=== PATIENT | male | born 1965 | race African-American/Black ===

== ENCOUNTER 2016-07-04 23:27 | Emergency (ER) | payer OTHER ==
[2016-07-04] MEDS ORDERED: IBUPROFEN 600 MG TABLET (FP) PO ONE ×2 (23:54→23:57)
[2016-07-04 23:57] VITALS: BP 143/71; PULSE 122; TEMP 102.4; BMI 24.0
--- NOTE | 2016-07-05 01:03 | PDOC ---
History of Present Illness - General Chief Complaint: Respiratory Stated Complaint: COLD SYMPTOMS Time Seen by Provider: 07/05/16 00:24 History Source: Patient - History of Present Illness Timing/Duration: reports: other (x3d) Severity: reports: mild Possible Cause: Yes: no prior episodes Modifying Factors: improves with: activity Associated Symptoms: reports: cough, fever/chills. denies: nasal congestion, nasal drainage, shortness of breath, sore throat Past History - Travel Traveled outside of the country in the last 30 days: No Close contact w/someone who was outside of country & ill: No - Past Medical History Allergies/Adverse Reactions: Allergies Allergy/AdvReac Type Severity Reaction Status Date / Time No Known Allergies Allergy Verified 07/04/16 23:49 Home Medications: Ambulatory Orders Desloratadine/Pseudoephedrine [Clarinex-D 12 Hour Tablet] 1 each PO DAILY PRN Anemia: No - Psycho/Social/Smoking Cessation Hx Anxiety: No Suicidal Ideation: No Smoking Status: No Smoking History: Former smoker Have you smoked in the past 12 months: No Number of Cigarettes Smoked Daily: 0 Information on smoking cessation initiated: No Hx Alcohol Use: No Respiratory Specific PMHX - Complaint Specific PMHX Angina: No Bronchitis: No Pneumonia: No Review of Systems - Review of Systems Able to Perform ROS?: Yes Comments:: 07/05/16 01:13 CONSTITUTIONAL: +fever, chills, generalized weakness, malaise Absent: diaphoresis, loss of appetite HEENT: Absent: rhinorrhea, nasal congestion, throat pain, throat swelling, difficulty swallowing, mouth swelling, ear pain, eye pain, visual Changes CARDIOVASCULAR: Absent: chest pain, loss of consciousness, palpitations, irregular heart rate, peripheral edema RESPIRATORY: + cough Absent:shortness of breath, dyspnea with exertion, orthopnea, wheezing, stridor , hemoptysis GASTROINTESTINAL: Absent: abdominal pain, abdominal distension, nausea, vomiting, diarrhea, constipation, melena, hematochezia GENITOURINARY: Absent: dysuria, frequency, urgency, hesitancy, hematuria, flank pain, genital pain MUSCULOSKELETAL: Absent: myalgia, arthralgia, joint swelling SKIN: Absent: rash, itching, pallor HEMATOLOGIC/IMMUNOLOGIC: Absent: easy bleeding, easy bruising, lymphadenopathy, frequent infections ENDOCRINE: Absent: unexplained weight gain, unexplained weight loss, heat intolerance, cold intolerance NEUROLOGIC: Absent: headache, focal weakness or paresthesias, dizziness, unsteady gait, seizure, mental status changes, bladder or bowel incontinence PSYCHIATRIC: Absent: anxiety, depression, suicidal or homicidal ideation, hallucinations. Is the patient limited Wolof proficient: No *Physical Exam - Vital Signs Last Vital Signs Temp Pulse Resp BP Pulse Ox 102.4 F H 122 H 22 143/71 99 07/04/16 23:56 07/04/16 23:56 07/04/16 23:56 07/04/16 23:56 07/04/16 23:56 - Physical Exam Comments: 07/05/16 01:14 GENERAL: Well developed, well nourished. Awake and alert. No acute distress. HEENT: Normocephalic, atraumatic. PERRLA, EOMI. No conjunctival pallor. Sclera are non- icteric. Moist mucous membranes. Oropharynx is clear. NECK: Supple. Full ROM. No JVD. Carotid pulses 2+ and symmetric, without bruits. No thyromegaly. No lymphadenopathy. CARDIOVASCULAR: Regular rate and rhythm. No murmurs, rubs, or gallops. Distal pulses are 2+ and symmetric. PULMONARY: No evidence of respiratory distress. Lungs clear to auscultation bilaterally. No wheezing, rales or rhonchi. ABDOMINAL: Soft. Non-tender. Non-distended. No rebound or guarding. No organomegaly. Normoactive bowel sounds. MUSCULOSKELETAL Normal range of motion at all joints. No bony deformities or tenderness. No CVA tenderness. EXTREMITIES: No cyanosis. No clubbing. No edema. No calf tenderness. SKIN: Warm and dry. Normal capillary refill. No rashes. No jaundice. NEUROLOGICAL: Alert, awake, appropriate. Cranial nerves 2-12 intact. No deficits to light touch and temperature in face, upper extremities and lower extremities. No motor deficits in the in face, upper extremities and lower extremities. Normoreflexic in the upper and lower extremities. Normal speech. Toes are down- going bilaterally. Gait is normal without ataxia. PSYCHIATRIC: Cooperative. Good eye contact. Appropriate mood and affect. ED Treatment Course - Medications Given in the ED: ED Medications Discontinued Medications Generic Name Dose Route Start Last Admin Trade Name Freq PRN Reason Stop Dose Admin Ibuprofen 600 mg 07/04/16 23:57 07/04/16 23:57 Motrin - PO 07/04/16 23:58 600 mg NOW ONE Administration Progress Note - Progress Note Progress Note: 50-year-old male presents to the emergency department complaining of fever/ chills and a nonproductive cough 3 days with body aches. Patient denies any headache, dizziness, lightheadedness, sore throat, difficulty swallowing, chest pain, shortness of breath, abdominal pains, urinary symptoms. Patient adamantly refuses a chest x-ray or flu swab. I explained to the patient that we should try to find out where the source of the fever is probably from the patient refuses. Patient says he wants a prescription for antibiotics for his "virus or flu". I explained to the patient that since he's been experiencing these symptoms for the past 3 days, Tamiflu will not work for him. I informed the patient that a chest x-ray will determine whether he has pneumonia or not. Patient still adamantly refuses. He says he wishes to be discharged and he will take Motrin/Tylenol for his fever. He will return if the symptoms persist for more than 5 days. *DC/Admit/Observation/Transfer Diagnosis at time of Disposition: Fever Qualifiers: Fever type: unspecified Qualified Code(s): R50.9 - Fever, unspecified - Discharge Dispostion Disposition: AGAINST MEDICAL ADVICE Condition at time of disposition: Guarded - Referrals Referrals: Lilian Rivera [Primary Care Provider] - - Patient Instructions Printed Discharge Instructions: DI for Fever (Symptom) -- Adult Additional Instructions: You a going AGAINST MEDICAL ADVICE for the chest x-ray and flu swab. Please return back to the ER for any concerns or persistent symptoms Increase fluids Tylenol/Motrin as needed for fever Increase fluids Follow up with your physician Return to the ER for severe/persistent/worsening symptoms
== END 2016-07-05 01:26 | disposition left against medical advice (07) ==
LOC: JER 23:27
DX: R50.9 Fever, unspecified (principal)
CPT/HCPCS: 99281-25

== ENCOUNTER 2016-09-06 05:28 | Emergency (ER) | payer OTHER ==
[2016-09-06 05:45] VITALS: BP 115/66; PULSE 69; TEMP 97.9; BMI 23.7
--- NOTE | 2016-09-06 06:02 | PDOC ---
History of Present Illness - General Chief Complaint: Respiratory Stated Complaint: DIFFICULTY BREATHING History Source: Patient, Family Exam Limitations: No Limitations - History of Present Illness Initial Comments: 09/06/16 06:08 50yo Male patient presents to ED c/o dry cough, tearing eyes, sore throat, nasal congestion, and sinus pressure. Patient states symptoms began yesterday and worsened overnight. Patient tried using various OTC cold medications with no relief. Denies fever, CP, Body aches, Diff breathing, abd pain or any other complaints at this time. Timing/Duration: reports: yesterday Severity: reports: moderate Possible Cause: Yes: occasional episodes Modifying Factors: worse with: activity, albuterol inhaler, albuterol nebulizer , antibiotics, coughing, lying down, oxygen, rest, other Associated Symptoms: reports: cough, earache, nasal congestion, nasal drainage, sinus infection, sore throat. denies: chest pain/soreness, facial pain, fever/ chills, headache, lightheadedness, muscle aches, wheezing Aspirin Received prior to arrival: No: no aspirin today, unknown, 81 mg x 1, 81 mg x 2, 81 mg x 3, 81 mg x 4, 325 mg x 1, provided at home, provided by EMS, provided by ED Past History - Travel Traveled outside of the country in the last 30 days: No Close contact w/someone who was outside of country & ill: No - Past Medical History Allergies/Adverse Reactions: Allergies Allergy/AdvReac Type Severity Reaction Status Date / Time No Known Allergies Allergy Verified 07/04/16 23:49 Home Medications: Ambulatory Orders Amoxicillin/Potassium Clav [Augmentin 500-125 Tablet] 1 each PO BID #28 tablet 09/06/16 Budesonide [Rhinocort Allergy] 2 spray NS DAILY #1 spray.pump 09/06/16 Loratadine [Claritin] 10 mg PO DAILY #30 tablet 09/06/16 Montelukast Na [Singulair -] 10 mg PO HS #30 tablet 09/06/16 NK [No Known Home Medication] 09/06/16 Anemia: No - Psycho/Social/Smoking Cessation Hx Anxiety: No Suicidal Ideation: No Smoking Status: No Smoking History: Never smoked Have you smoked in the past 12 months: No Number of Cigarettes Smoked Daily: 0 Hx Alcohol Use: No Drug/Substance Use Hx: No Respiratory Specific PMHX - Complaint Specific PMHX Angina: No Bronchitis: No Pneumonia: No Pulmonary Embolus: No TB (Tuberculosis): No Review of Systems - Review of Systems Able to Perform ROS?: Yes Is the patient limited [place] proficient: No Constitutional: No: Chills, Fever, Malaise, Night Sweats HEENTM: Yes: Nose Pain, Nose Congestion, Throat Pain. No: Difficulty Swallowing , Mouth Swelling Respiratory: Yes: Cough. No: Shortness of Breath, Stridor, Wheezing Cardiac (ROS): No: Chest Pain, Palpitations, Syncope ABD/GI: No: Diarrhea, Nausea, Poor Appetite, Poor Fluid Intake, Vomiting : No: Dysuria, Hematuria Musculoskeletal: No: Back Pain, Muscle Weakness Integumentary: No: Erythema, Rash Neurological: No: Headache, Numbness, Paresthesia, Seizure, Tremors, Weakness, Ataxia, Dizziness All Other Systems: Reviewed and Negative *Physical Exam - Vital Signs Last Vital Signs Temp Pulse Resp BP Pulse Ox 97.9 F 69 20 115/66 100 09/06/16 05:42 09/06/16 05:42 09/06/16 05:42 09/06/16 05:42 09/06/16 05:42 - Physical Exam General Appearance: Yes: Nourished, Appropriately Dressed, Mild Distress. No: Apparent Distress, Moderate Distress, Severe Distress HEENT: positive: EOMI, NAUN, Normal Voice, Symmetrical, TMs Normal, Pharyngeal Erythema, Nasal Congestion, Rhinorrhea, Sinus Tenderness. negative: Tonsillar Exudate, Tonsillar Erythema, TM Bulging, TM Dull, TM Erythema Neck: positive: Trachea midline, Normal Thyroid, Supple. negative: Stridor, Lymphadenopathy (R), Lymphadenopathy (L) Respiratory/Chest: positive: Lungs Clear, Normal Breath Sounds. negative: Respiratory Distress, Accessory Muscle Use, Labored Respiration, Rapid RR, Stridor, Wheezing Cardiovascular: positive: Regular Rhythm, Regular Rate Gastrointestinal/Abdominal: positive: Normal Bowel Sounds, Soft. negative: Distended, Guarding, Rebound, Tenderness Musculoskeletal: positive: Normal Inspection. negative: CVA Tenderness Extremity: positive: Normal Capillary Refill, Normal Inspection, Normal Range of Motion. negative: Swelling, Calf Tenderness Integumentary: positive: Normal Color, Dry, Warm. 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, Fully Oriented, Alert, Normal Mood/ Affect, Normal Response, Motor Strength 5/5 *DC/Admit/Observation/Transfer Diagnosis at time of Disposition: Sinusitis Qualifiers: Sinusitis location: sphenoidal Chronicity: subacute Qualified Code(s): J01.30 - Acute sphenoidal sinusitis, unspecified Allergic rhinitis Qualifiers: Allergic rhinitis trigger: other Allergic rhinitis seasonality: seasonal Qualified Code(s): J30.89 - Other allergic rhinitis - Discharge Dispostion Disposition: HOME Condition at time of disposition: Stable Admit: No - Prescriptions Prescriptions: Amoxicillin/Potassium Clav [Augmentin 500-125 Tablet] 1 each PO BID #28 tablet Loratadine [Claritin] 10 mg PO DAILY #30 tablet Budesonide [Rhinocort Allergy] 2 spray NS DAILY #1 spray.pump Montelukast Na [Singulair -] 10 mg PO HS #30 tablet - Referrals Referrals: Lilian Rivera [Primary Care Provider] - - Patient Instructions Printed Discharge Instructions: DI for Allergic Rhinitis, DI for Sinusitis Additional Instructions: FOLLOW UP WITH YOUR PRIMARY CARE PROVIDER NEEDED. TAKE MEDICATIONS PRESCRIBED. DRINK PLENTY WATER. RETURN IF SYMPTOMS WORSEN OR ANY CONCERNS FOR FURTHER EVALUATION. Print Language: KINYARWANDA - Post Discharge Activity Work/School Note: Back to Work
[2016-09-06] MEDS ORDERED: LORATADINE 10 MG TABLET ONE (06:12)
[2016-09-06] MEDS ORDERED: AMOX TR/POT CLAV 500MG/125MG TABLETS (FP) PO ONE (06:14)
[2016-09-06] MEDS ORDERED: LORATADINE 10 MG TABLET PO SCH (10:00)
== END 2016-09-06 06:12 | disposition home or self-care (01) ==
LOC: JER 05:28
DX: J01.30 Acute sphenoidal sinusitis, unspecified (principal); J30.89 Other allergic rhinitis
CPT/HCPCS: 99282-25

== ENCOUNTER 2017-05-07 09:13 | Emergency (ER) | payer OTHER ==
[2017-05-07 09:23] VITALS: BP 135/89; PULSE 65; TEMP 98.4; BMI 24.4
[2017-05-07] MEDS ORDERED: KETOROLAC TROMETHAMINE 60 MG/2 ML VIAL IM ONE (09:49)
[2017-05-07 10:43] LABS: PH,URINE 6.5 (5.0-8.0); URINE APPEARANCE CLEAR; URINE BILIRUBIN NEGATIVE (NEGATIVE); URINE BLOOD NEGATIVE (NEGATIVE); URINE COLOR YELLOW; URINE GLUCOSE (UA) NEGATIVE (NEGATIVE); URINE KETONE TRACE (NEGATIVE); URINE NITRITE NEGATIVE (NEGATIVE); URINE PROTEIN NEGATIVE (NEGATIVE); URINE UROBILINOGEN 0.2 mg/dL (0.2-1.0)
--- NOTE | 2017-05-07 10:43 | PDOC ---
History of Present Illness - General Chief Complaint: Back Pain Stated Complaint: BACK PAIN Time Seen by Provider: 05/07/17 09:36 History Source: Patient Exam Limitations: No Limitations - History of Present Illness Initial Comments: 05/07/17 10:42 51 yr male no pmhx states he was at work and felt a sharp stabbing pain to his left lower back , denies direct trauma denies abd pain or dysuria. Pain is worse with movement no leg pain or groin pain. Occurred: reports: just prior to arrival Severity: reports: moderate Pain Location: reports: back Method of Injury: Yes: unknown Past History - Past Medical History Allergies/Adverse Reactions: Allergies Allergy/AdvReac Type Severity Reaction Status Date / Time No Known Allergies Allergy Verified 07/04/16 23:49 Home Medications: Ambulatory Orders Budesonide [Rhinocort Allergy] 2 spray NS DAILY #1 spray.pump 09/06/16 Diazepam [Valium] 5 mg PO Q8H PRN #12 tablet MDD 15mg 05/07/17 Naproxen [Naprosyn -] 500 mg PO BID PRN #28 tablet 05/07/17 Anemia: No COPD: No Other medical history: denies - Suicide/Smoking/Psychosocial Hx Smoking Status: No Smoking History: Never smoked Have you smoked in the past 12 months: No Number of Cigarettes Smoked Daily: 0 Information on smoking cessation initiated: No Hx Alcohol Use: No Drug/Substance Use Hx: No Substance Use Type: None *Physical Exam - Vital Signs Last Vital Signs Temp Pulse Resp BP Pulse Ox 98.4 F 65 20 135/89 98 05/07/17 09:20 05/07/17 09:20 05/07/17 09:20 05/07/17 09:20 05/07/17 09:20 - Physical Exam General Appearance: Yes: Nourished, Appropriately Dressed HEENT: positive: EOMI, NAUN, Normal ENT Inspection, TMs Normal, Pharynx Normal Neck: positive: Supple. negative: Tender Respiratory/Chest: positive: Lungs Clear, Normal Breath Sounds Cardiovascular: positive: Regular Rhythm, Regular Rate Gastrointestinal/Abdominal: positive: Normal Bowel Sounds, Soft. negative: Tender Rectal Exam: positive: deferred Lymphatic: negative: Adenopathy Musculoskeletal: positive: Normal Inspection, Other (neg spinal tenderness, lower lumbar spine paraspinal soft tissue ttp ). negative: CVA Tenderness (R), CVA Tenderness (L), Decreased Range of Motion (FROM, pain is reproduced iwth bending forward), Vertebral Tenderness Extremity: positive: Normal Capillary Refill, Normal Inspection, Normal Range of Motion Integumentary: positive: Normal Color, Dry, Warm Neurologic: positive: Fully Oriented, Alert, Normal Mood/Affect, Normal Response , Motor Strength 10/11 ED Treatment Course - Medications Given in the ED: ED Medications Discontinued Medications Generic Name Dose Route Start Last Admin Trade Name Roberto Carlos PRN Reason Stop Dose Admin Ketorolac Tromethamine 60 mg 05/07/17 09:49 05/07/17 09:56 Toradol Injection - IM 05/07/17 09:50 60 mg ONCE ONE Administration Progress Note - Progress Note Progress Note: pt improved after the toradol states pain is much less. pt ambulating freely no distress. Medical Decision Making - Medical Decision Making 05/07/17 10:55 cc: acute left lower back pain non radiating, no abd pain , pain reproduced to touch and with movement, pt denies direct trauma, unable to recall if he was lifting or pushing something at work when it happened will check UA give toradol R/o renal colic r/o muscle spasm and strain 05/07/17 10:59 pt feels better after the toradol urine is negative will dc home with muscle relaxants and naprosyn follow with the orthopedist as needed *DC/Admit/Observation/Transfer Diagnosis at time of Disposition: Low back strain Qualifiers: Encounter type: initial encounter Qualified Code(s): S39.012A - Strain of muscle, fascia and tendon of lower back, initial encounter - Discharge Dispostion Disposition: HOME Condition at time of disposition: Improved - Prescriptions Prescriptions: Diazepam [Valium] 5 mg PO Q8H PRN #12 tablet MDD 15mg PRN Reason: Muscle Spasms Naproxen [Naprosyn -] 500 mg PO BID PRN #28 tablet PRN Reason: Back Pain - Referrals Referrals: Lilian Rivera [Non Staff, Medical] - Juan Jose Navarro MD [Staff Physician] - - Patient Instructions Additional Instructions: apply a heating pad or warm compress to the area of pain as often as you like take naprosyn for pain take the valium as needed for muscle spasm DO NOT DRIVE, OPERATE MACHINERY OR DRINK ALCOHOL WHILE TAKING VALIUM avoid heavy lifting or bending until you have recovered from your pain - Post Discharge Activity
[2017-05-07 19:04] LABS: URINE LEUK ESTERASE Negative (NEGATIVE)
== END 2017-05-07 11:33 | disposition home or self-care (01) ==
LOC: JERFT 09:13
PROC: 3E0233Z Introduction of Anti-inflammatory into Muscle, Percutaneous Approach (ICD-10-PCS; principal; 2017-05-07)
DX: S39.012A Strain of muscle, fascia and tendon of lower back, initial encounter (principal); X58.XXXA Exposure to other specified factors, initial encounter; Y93.89 Activity, other specified; Y92.69 Other specified industrial and construction area as the place of occurrence of the external cause; Y99.8 Other external cause status
CPT/HCPCS: 81003; 99281-25

== ENCOUNTER 2018-04-06 04:47 | Emergency (ER) | payer OTHER ==
[2018-04-06 05:11] VITALS: BP 122/74; PULSE 68; TEMP 97.3; BMI 24.0
--- NOTE | 2018-04-06 05:23 | PDOC ---
History of Present Illness - General Chief Complaint: Injury Stated Complaint: EPISTAXIS Time Seen by Provider: 04/06/18 05:11 History Source: Patient Exam Limitations: No Limitations - History of Present Illness Timing/Duration: 1-3 hours Severity: moderate Past History - Travel Traveled outside of the country in the last 30 days: No Close contact w/someone who was outside of country & ill: No - Past Medical History Allergies/Adverse Reactions: Allergies Allergy/AdvReac Type Severity Reaction Status Date / Time No Known Allergies Allergy Verified 04/06/18 05:13 Anemia: No COPD: No - Immunization History Immunization Up to Date: Yes - Suicide/Smoking/Psychosocial Hx Smoking Status: No Smoking History: Never smoked Have you smoked in the past 12 months: No Number of Cigarettes Smoked Daily: 0 Hx Alcohol Use: No Drug/Substance Use Hx: No Substance Use Type: None Review of Systems - Review of Systems Constitutional: No: Symptoms Reported, See HPI, Chills, Diaphoresis, Fever, Loss of Appetite, Malaise, Night Sweats, Weakness, Weight Stable, Unintentional Wgt. Loss, Unexplained wgt Loss, Other HEENTM: Yes: Eye Pain, Tearing, Nose Congestion, Nose Bleeding, Mouth Pain Respiratory: No: Symptoms reported, See HPI, Cough, Orthopnea, Shortness of Breath, SOB with Exertion, SOB at Rest, Stridor, Wheezing, Productive cough, Hemoptysis, Other Cardiac (ROS): No: Symptoms Reported, See HPI, Chest Pain, Edema, Irregular Heart Rate, Lightheadedness, Palpitations, Syncope, Chest Tightness, Other ABD/GI: No: Symptoms Reported, See HPI, Abdominal Distended, Abd. Pain w/ defecation, Blood Streaked Bowels, Constipated, Diarrhea, Difficulty Swallowing , Nausea, Poor Appetite, Poor Fluid Intake, Rectal Bleeding, Vomiting, Indigestion, Abdominal cramping, Tarry Stools, Other : No: Symptoms Reported, See HPI, Burning, Dysuria, Discharge, Frequency, Flank Pain, Hematuria, Incontinence, Pain, Urgency, Testicular Mass, Testicular Swelling, Lesions, Testicular Pain, Other Musculoskeletal: No: Symptoms Reported, See HPI, Back Pain, Gout, Joint Pain, Joint Swelling, Muscle Pain, Muscle Weakness, Neck Pain, Joint Stiffness, Other Integumentary: No: Symptoms Reported, See HPI, Bruising, Change in Color, Change in Hair/Nails, Dryness, Erythema, Flushing, Lesions, Lumps, Pallor, Pruritus, Rash, Sweating, Other Neurological: No: Symptoms reported, See HPI, Headache, Numbness, Paresthesia, Pre-Existing Deficit, Seizure, Tingling, Tremors, Weakness, Unsteady Gait, Ataxia, Dizziness, Other *Physical Exam - Vital Signs Last Vital Signs Temp Pulse Resp BP Pulse Ox 97.3 F L 68 16 122/74 98 04/06/18 05:04 04/06/18 05:04 04/06/18 05:04 04/06/18 05:19 04/06/18 05:04 - Physical Exam General Appearance: Yes: Nourished, Appropriately Dressed, Mild Distress HEENT: positive: EOMI, NAUN, Normal ENT Inspection, Normal Voice, Symmetrical, TMs Normal, Pharynx Normal, Nasal Congestion, Sinus Tenderness, Other (nasal bridge pain and laceration inthe left nare. Hemodynamically stable) Neck: positive: Normal Thyroid, Supple. negative: Tender, Trachea midline, Rigid, Carotid bruit, Decreased range of motion, Stridor, Lymphadenopathy (R), Lymphadenopathy (L), Rigidity, Tender lateral, Tender midline, Thyromegaly, Other Respiratory/Chest: positive: Lungs Clear, Normal Breath Sounds. negative: Chest Tender, Respiratory Distress, Accessory Muscle Use, Labored Respiration, Rapid RR, Decreased Breath Sounds, Paradoxal Breathing, Crackles, Rales, Rhonchi , Stridor, Wheezing, Hyperresonant, Dullness, Plerual Rub, Other Cardiovascular: positive: Regular Rhythm, Regular Rate. 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 Pt may return for that if he gets worse. Pt understands that we are avoiding scans due to the risk of radiation. *DC/Admit/Observation/Transfer Diagnosis at time of Disposition: Nasal bleeding, Injury of nasal cavity, Work place accident - Discharge Dispostion Disposition: HOME Condition at time of disposition: Stable Decision to Admit order: No - Referrals Referrals: Ryan Gould MD [Primary Care Provider] - Mahesh Hogan MD [Staff Physician] - - Patient Instructions Printed Discharge Instructions: DI for Nosebleed Additional Instructions: return for CT brain and CT face for worsening headache or pain. - Post Discharge Activity Forms/Work/School Notes: Back to Work Activity Comments: 04/06/18 05:37 rest and ice face; tylenol for pain
[2018-04-06] MEDS ORDERED: ACETAMINOPHEN 325 MG TABLET (FP) PO ONE (05:37)
[2018-04-06] MEDS ORDERED: ACETAMINOPHEN 325 MG TABLET (FP) ONE (05:43)
== END 2018-04-06 06:14 | disposition home or self-care (01) ==
LOC: JER 04:47
DX: S01.21XA Laceration without foreign body of nose, initial encounter (principal); W31.1XXA Contact with metalworking machines, initial encounter; Y93.89 Activity, other specified; Y92.69 Other specified industrial and construction area as the place of occurrence of the external cause; Y99.0 Civilian activity done for income or pay
CPT/HCPCS: 99282-25

== ENCOUNTER 2018-12-29 18:09 | Inpatient (IN) | payer OTHER ==
--- NOTE | 2018-12-29 18:31 | PDOC ---
History of Present Illness - General Chief Complaint: Choking Sensation Stated Complaint: SOB Time Seen by Provider: 12/29/18 18:30 History Source: Patient Exam Limitations: No Limitations - History of Present Illness Initial Comments: 12/29/18 19:25 Demetri Worthy is a 53y previously healthy M presenting with choking. At 530p, he started choking while eating chicken and rodolfo. Foreign body sensation below cricoid cartilage, midline. Associated bilateral frontal headache, intermittent coughing and spitting up. No allergies. Denies fever, nausea/vomiting, SOB, chest/AB pain, urinary/bowel changes. Past History - Past Medical History Allergies/Adverse Reactions: Allergies Allergy/AdvReac Type Severity Reaction Status Date / Time No Known Allergies Allergy Verified 12/29/18 18:15 Home Medications: Ambulatory Orders NK [No Known Home Medication] 12/29/18 Anemia: No COPD: No - Immunization History Immunization Up to Date: Yes - Suicide/Smoking/Psychosocial Hx Smoking Status: No Smoking History: Never smoked Have you smoked in the past 12 months: No Number of Cigarettes Smoked Daily: 0 Hx Alcohol Use: No Drug/Substance Use Hx: No Substance Use Type: None Review of Systems - Review of Systems Constitutional: No: Chills, Fever HEENTM: Yes: Throat Pain, Difficulty Swallowing. No: Eye Pain, Ear Pain, Nose Pain, Nose Congestion, Throat Swelling, Mouth Pain, Mouth Swelling Respiratory: No: Cough, Shortness of Breath Cardiac (ROS): No: Chest Pain, Irregular Heart Rate, Palpitations, Syncope, Chest Tightness ABD/GI: No: Abdominal Distended, Constipated, Diarrhea, Nausea, Vomiting : No: Burning, Dysuria, Discharge, Flank Pain, Hematuria, Incontinence Musculoskeletal: No: Back Pain, Joint Pain, Muscle Pain, Muscle Weakness Integumentary: No: Bruising, Flushing, Lesions, Lumps Neurological: Yes: Headache. No: Numbness, Paresthesia, Seizure, Tingling, Tremors Psychiatric: No: Anxiety, Depression Endocrine: No: Excessive Sweating, Flushing, Intolerance to Cold, Intolerance to Heat Hematologic/Lymphatic: No: Anemia, Blood Clots, Easy Bleeding *Physical Exam - Vital Signs Last Vital Signs Temp Pulse Resp BP Pulse Ox 98.5 F 87 24 H 118/88 100 12/29/18 18:15 12/29/18 18:15 12/29/18 18:15 12/29/18 18:15 12/29/18 18:15 - Physical Exam General Appearance: Yes: Nourished, Appropriately Dressed, Apparent Distress HEENT: positive: EOMI, NAUN, Normal Voice, Pharynx Normal (patent airway, no pooled secretions), Hearing Grossly Normal, Other (intermittent coughing and spitting up sputum). negative: Pale Conjunctivae, Pharyngeal Erythema, Tonsillar Exudate, Tonsillar Erythema, Nasal Congestion, Rhinorrhea, Sinus Tenderness, Excessive drooling Neck: positive: Trachea midline, Normal Thyroid, Supple. negative: Tender, Rigid, Lymphadenopathy (R), Lymphadenopathy (L), Tender midline Respiratory/Chest: positive: Lungs Clear, Normal Breath Sounds. negative: Chest Tender, Respiratory Distress, Crackles, Rales, Rhonchi, Stridor, Wheezing Cardiovascular: positive: Regular Rhythm, Regular Rate, S1, S2. negative: Edema , Murmur Neurologic: positive: Fully Oriented, Alert, Normal Mood/Affect, Normal Response , Responsive. negative: Confused, Disoriented Medical Decision Making - Medical Decision Making 12/29/18 19:20 Given magic mouthwash without throat relief. CT neck/soft tissue 10 decadron to reduce inflammation Still feels foreign body, spitting up less at recheck 2130 Demetri Worthy is a 53y previously healthy M presenting with choking. Patent posterior pharynx w/o edema or pooled excretions. O2 sat normal on room air, able to tolerate secretions (with pain). Given magic mountain for throat relief , 10 decadron to reduce inflammation. CT neck showed 1.7x1.7x0.2cm partial opaque mass in cervical esophagus at C7. Advised by Dr David CHASE to give 1mg IV glucagon, will undergo endoscopy tomorrow morning. Admit inpatient for dysphagia, waiting for tomorrow endoscopy. Signed out to Dr. Honorio Crenshaw *DC/Admit/Observation/Transfer Diagnosis at time of Disposition: Dysphagia Qualifiers: Dysphagia type: esophageal phase Qualified Code(s): R13.10 - Dysphagia, unspecified - Discharge Dispostion Condition at time of disposition: Stable - Referrals Referrals: Denny Stoll MD [Staff Physician] - - Patient Instructions Additional Instructions: Please return to the emergency department with any new or worsening symptoms or concerns. 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 - Post Discharge Activity
--- NOTE | 2018-12-29 18:58 | PDOC ---
Attending Attestation - Resident Resident Name: Ramone Pink - HPI HPI: 01/01/19 07:36 Pt presents to the ED complaining of the acute onset of foreign body sensation that occurred after eating chicken. Patient is able to tolerate his secretions , with some difficulty. No vomiting or shortness of breath. Speaking in complete sentences. - Physicial Exam PE: 01/01/19 07:38 Pt is alert, moderately uncomfortable. Speaking in complete sentences. No pooled secretions or drooling. No stridor. No pharyngeal or tonsillar edema, uvula is midline. - Medical Decision Making 01/01/19 07:39 Pt presents to the ED complaining of foreign body sensation. Mild difficulty tolerating secretions. Concern for esophageal foreign body. Will check labs and CT neck.
[2018-12-29] MEDS ORDERED: DEXAMETHASONE SOD PHOSPHATE 10 MG/1 ML VIAL IM ONE (19:54)
[2018-12-29] MEDS ORDERED: DEXAMETHASONE SOD PHOSPHATE 10 MG/1 ML VIAL ONE (20:05)
[2018-12-29] MEDS ORDERED: GLUCAGON 1 MG KIT IVPUSH ONE (21:23)
[2018-12-29] MEDS ORDERED: GlUCAGON HUMAN RECOMBINANT 1 MG/VIAL IM ONE (21:31)
[2018-12-29] MEDS ORDERED: GlUCAGON HUMAN RECOMBINANT 1 MG/VIAL ONE (21:38)
--- NOTE | 2018-12-29 22:39 | PN ---
Teaching Attending Note Name of Resident: Regino August ATTENDING PHYSICIAN STATEMENT I saw and evaluated the patient. I reviewed the resident's note and discussed the case with the resident. I agree with the resident's findings and plan as documented. SUBJECTIVE: Patient is a 53 year old man with no significant PMH presenting with choking. At 5;30 pm, he started choking while eating chicken and rodolfo. He felt foreign body sensation below cricoid cartilage with associated bilateral frontal headache, intermittent coughing and spitting up. No history of allergies. Denies fever, nausea, vomiting, SOB, chest pain, abdominal pain, changes in urinary or bowel function. OBJECTIVE: Alert in no acute distress; no stridor. Vital Signs Period Temp Pulse Resp BP Sys/Moss Pulse Ox Last 24 Hr 97.0 F-98.5 F 72-87 17-24 118-121/80-88 98-100 HEENT: No Jaundice, eye redness or discharge, PERRLA, EOMI. Normocephalic, atraumatic. No posterior pharyngeal edema or pooled excretions. External ears are normal and hearing is grossly intact. No nasal discharge. Neck: Supple, nontender. No palpable adenopathy or thyromegaly. No JVD Chest: Good effort. Clear to auscultation and percussion. Heart: Regular. No S3, rub or murmur Abdomen: Not distended, soft, nontender and no HSM. No rebound or guarding. Normal bowel sounds. Ext: Peripheral pulses intact. No leg edema. Skin: Warm and dry. No petechiae, rash or ecchymosis. Neuro: Alert. Oriented x3. CN 2-12 grossly intact. Sensation grossly intact in all four extremities and DTR are symmetric. Psych: Appropriate mood and affect. Good insight. Current Medications Generic Name Dose Route Start Last Admin Trade Name Freq PRN Reason Stop Dose Admin Lactated Ringer's 1,000 mls @ 125 mls/hr 12/29/18 22:45 12/29/18 23:45 Lactated Ringers Solution IV 125 mls/hr ASDIR CARLOTTA Administration Lidocaine/Aluminum/Magnesium/Simeth 5 ml 12/30/18 18:49 12/29/18 18:54 Magic Mouthwash *Sjr Formula* - MM 12/30/18 18:50 5 ml ONCE ONE Administration Home Medications Medication Instructions Recorded NK [No Known Home Medication] 12/29/18 ASSESSMENT AND PLAN: 1. Chocking with food impaction in esophagus - Soft tissue neck CT without contrast showed 1.7x1.7x0.2cm partial opaque mass in cervical esophagus at C7 level. In the ER he got Magic mountain mouth was for throat relief and Decadron 10 mg IM to reduce inflammation. GI was consulted and advised to give Glucagon 1 mg IV - to relax lower esophageal sphincter. Will possibly undergo endoscopy tomorrow morning. EKG, CMP and CBC pending. Will implement dysphagia and aspiration precautions. 2. DVT prophylaxis - SCD, Early ambulation 3. Advance directives - Full code
--- NOTE | 2018-12-29 22:40 | HP ---
CHIEF COMPLAINT: sticking sensation in throat PCP: HISTORY OF PRESENT ILLNESS: 53M with no pmh presents with complaint of sticking sensation in throat. At ~5: 30pm pt was eating a roti meal of chicken(w/ bones), potatoes, mangoes(w/ chopped pits) when he felt a sudden sharp sticking sensation in his throat which prompted coughing, watery eyes. No nausea, vomiting. Denies LOC. Tried drinking water for relief but still felt sensation. Denies difficulty with speaking. Denies persistent h/o trouble swallowing, no history of anemia. Never had an EGD or colonoscopy. Works in [employer]. ER course was notable for: (1) glucagon x2 (2) dexamethasone x1 (3) CT neck -- 1.7 x 1.7 x 0.2cm FB in esophagus at level of C7 Recent Travel: PAST MEDICAL HISTORY: none PAST SURGICAL HISTORY: Left hand surgery Social History: Smoking: denies Alcohol: social Drugs: denies Family History: Mother with HTN Allergies No Known Allergies Allergy (Verified 12/29/18 18:15) HOME MEDICATIONS: Home Medications Medication Instructions Recorded NK [No Known Home Medication] 12/29/18 REVIEW OF SYSTEMS CONSTITUTIONAL: Absent: fever, chills, diaphoresis, generalized weakness, malaise, loss of appetite, weight change HEENT: sticking sensation in throat, difficulty swallowing Absent: rhinorrhea, nasal congestion, throat pain, throat swelling, , mouth swelling, ear pain, eye pain, visual changes CARDIOVASCULAR: Absent: chest pain, syncope, palpitations, irregular heart rate, lightheadedness , peripheral edema RESPIRATORY: Absent: cough, shortness of breath, dyspnea with exertion, wheezing, stridor, hemoptysis GASTROINTESTINAL: Absent: abdominal pain, abdominal distension, nausea, vomiting, diarrhea, constipation, melena, hematochezia GENITOURINARY: Absent: dysuria, frequency, urgency, hesitancy, hematuria, flank pain, genital pain MUSCULOSKELETAL: Absent: myalgia, arthralgia, joint swelling, back pain, neck pain SKIN: Absent: rash, itching, pallor HEMATOLOGIC/IMMUNOLOGIC: Absent: easy bleeding, easy bruising, lymphadenopathy, frequent infections ENDOCRINE: Absent: unexplained weight gain, unexplained weight loss, heat intolerance, cold intolerance NEUROLOGIC: Absent: headache, focal weakness or paresthesias, dizziness, unsteady gait, seizure, mental status changes, bladder or bowel incontinence PSYCHIATRIC: Absent: anxiety, depression, suicidal or homicidal ideation, hallucinations. PHYSICAL EXAMINATION Vital Signs - 24 hr 12/29/18 12/29/18 18:15 19:27 Temperature 98.5 F Pulse Rate 87 Pulse Rate [ 72 Apical] Respiratory 24 H 17 Rate Blood Pressure 118/88 Blood Pressure 118/83 [Left Arm] O2 Sat by Pulse 100 100 Oximetry (%) GENERAL: Awake, alert, and fully oriented, in mild distress. HEAD: Normal with no signs of trauma. EYES: extraocular movements intact, sclera anicteric, conjunctiva clear. Conjunctival web of the Right eye EARS, NOSE, THROAT: Ears normal, nares patent, oropharynx clear without exudates. Moist mucous membranes. NECK: Normal range of motion, supple without lymphadenopathy, JVD, or masses. LUNGS: Breath sounds equal, clear to auscultation bilaterally. No wheezes, and no crackles. No accessory muscle use. HEART: Regular rate and rhythm, normal S1 and S2 without murmur, rub or gallop. ABDOMEN: Soft, nontender, not distended, no guarding, no rebound, no masses. No hepatomegaly or splenomegaly. MUSCULOSKELETAL: Normal range of motion at all joints. No bony deformities or tenderness. No CVA tenderness. UPPER EXTREMITIES: 2+ pulses, warm, well-perfused. No cyanosis. No clubbing. No peripheral edema. Left hand with surgical scar over dorsal surface LOWER EXTREMITIES: 2+ pulses, warm, well-perfused. No calf tenderness. No peripheral edema. NEUROLOGICAL: Normal speech. Normal gait. PSYCHIATRIC: Cooperative. Good eye contact. Appropriate mood and affect. SKIN: Warm, dry, normal turgor, no rashes or lesions noted, normal capillary refill. ASSESSMENT/PLAN: 52F w/ no pmh w/ esophageal impacted food bolus w/ no acute distress # esophageal impacted food bolus - GI consulted: will evaluate for scope in the AM - strict NPO - IVF Regino August DO PGY-1 Medicine, PM-Float [id number] 12/30/18 Visit type - Emergency Visit Emergency Visit: Yes ED Registration Date: 12/29/18 Care time: The patient presented to the Emergency Department on the above date and was hospitalized for further evaluation of their emergent condition. - New Patient This patient is new to me today: Yes Date on this admission: 12/30/18 - Critical Care Critical Care patient: No ATTENDING PHYSICIAN STATEMENT I saw and evaluated the patient. I reviewed the resident's note and discussed the case with the resident. I agree with the resident's findings and plan as documented. SUBJECTIVE: OBJECTIVE: ASSESSMENT AND PLAN:
[2018-12-29] MEDS: LACTATED RINGERS SOLUTION 1,000 ML IV SCH (23:45)
[2018-12-30] MEDS ORDERED: MAG HYDROX/ALH/SMC/DPHA/LIDO 240 ML MOUTHWASH MM SCH
[2018-12-30 03:39] VITALS: BMI 26.2
[2018-12-30] MEDS ORDERED: ACETAMINOPHEN 1000 MG/100 ML VIAL (NON FORMULARY) IVPB ONE (03:52)
--- NOTE | 2018-12-30 08:17 | EKG ---
Test Reason : Blood Pressure : / mmHG Vent. Rate : 071 BPM Atrial Rate : 071 BPM P-R Int : 152 ms QRS Dur : 100 ms QT Int : 392 ms P-R-T Axes : 056 048 029 degrees QTc Int : 425 ms NORMAL SINUS RHYTHM NORMAL ECG WHEN COMPARED WITH ECG OF 27-JUN-2009 21:32, NO SIGNIFICANT CHANGE WAS FOUND Confirmed by JUVENTINO IBARRA MD ([id number]) on 12/30/2018 8:17:26 AM Referred By: Confirmed By:JUVENTINO IBARRA MD
--- NOTE | 2018-12-30 08:21 | PN ---
Physical Exam: SUBJECTIVE: Patient seen and examined OBJECTIVE: Vital Signs Period Temp Pulse Resp BP Sys/Moss Pulse Ox Last 24 Hr 97.0 F-98.5 F 69-87 16-24 107-121/65-89 98-100 GENERAL: The patient is awake, alert, and fully oriented, in no acute distress. HEAD: Normal with no signs of trauma. EYES: PERRL, extraocular movements intact, sclera anicteric, conjunctiva clear. No ptosis. ENT: Ears normal, nares patent, oropharynx clear without exudates, moist mucous membranes. NECK: Trachea midline, full range of motion, supple. LUNGS: Breath sounds equal, clear to auscultation bilaterally, no wheezes, no crackles, no accessory muscle use. HEART: Regular rate and rhythm, S1, S2 without murmur, rub or gallop. ABDOMEN: Soft, nontender, nondistended, normoactive bowel sounds, no guarding, no rebound, no hepatosplenomegaly, no masses. EXTREMITIES: 2+ pulses, warm, well-perfused, no edema. NEUROLOGICAL: Cranial nerves II through XII grossly intact. Normal speech, gait not observed. PSYCH: Normal mood, normal affect. SKIN: Warm, dry, normal turgor, no rashes or lesions noted Laboratory Results - last 24 hr 12/30/18 00:55 Troponin I < 0.02 Active Medications Generic Name Dose Route Start Last Admin Trade Name Freq PRN Reason Stop Dose Admin Lactated Ringer's 1,000 mls @ 125 mls/hr 12/29/18 22:45 12/29/18 23:45 Lactated Ringers Solution IV 125 mls/hr ASDIR CARLOTTA Administration Lidocaine/Aluminum/Magnesium/Simeth 5 ml 12/30/18 18:49 12/29/18 18:54 Magic Mouthwash *Sjr Formula* - MM 12/30/18 18:50 5 ml ONCE ONE Administration CT soft tissue neck w/o 12/29/18: Clinical information: food sensation in throat Multiplanar imaging was performed. Intravenous contrast was not administered. An approximately 1.7 x 1.7 x 0.2 cm partially opaque foreign body is seen within the cervical esophagus at the C7 level (transaxial images 18 - 24). No extraluminal air is seen. There is no discrete fluid collection. The prevertebral retropharyngeal soft tissue planes appear unremarkable in thickness. Several nonspecific mildly prominent bilateral internal jugular chain lymph nodes are seen which may be reactive in nature. Correlate clinically. Several bilateral punctate calcifications are noted within the palatine tonsils consistent with postinflammatory sequela. Two calcified nodules are seen within the partially imaged left pulmonary apex possibly representing granulomas. IMPRESSION: An approximately 1.7 x 1.7 x 0.2 cm partially opaque foreign body is seen within the cervical esophagus at the C7 level. ASSESSMENT/PLAN: 53M with no pmh presents with complaint of sticking sensation in throat. At ~5: 30pm pt was eating a roti meal of chicken(w/ bones), potatoes, mangoes(w/ chopped pits) when he felt a sudden sharp sticking sensation in his throat which prompted coughing, watery eyes. No nausea, vomiting. Denies LOC. Tried drinking water for relief but still felt sensation. Denies difficulty with speaking. Denies persistent h/o trouble swallowing, no history of anemia. Never had an EGD or colonoscopy. Works in [employer]. ER course was notable for: (1) glucagon x2 (2) dexamethasone x1 Advised by Dr David CHASE to give 1mg IV glucagon, will undergo endoscopy tomorrow morning. ATTENDING PHYSICIAN STATEMENT I saw and evaluated the patient. I reviewed the resident's note and discussed the case with the resident. I agree with the resident's findings and plan as documented. SUBJECTIVE: OBJECTIVE: ASSESSMENT AND PLAN:
[2018-12-30 08:50] LABS: HEMOGLOBIN 15.3 GM/dL (11.7-16.9); MCH 31.6 pg (25.7-33.7); MEAN PLT VOLUME 8.9 fl (7.5-11.1); PLATELET COUNT 203 K/MM3 (134-434); RBC 4.84 M/mm3 (4.00-5.60); RDW 14.7 % (11.9-15.9); WHITE BLOOD COUNT 7.5 K/mm3 (4.0-10.0)
[2018-12-30 08:58] LABS: ALBUMIN 3.9 g/dl (3.4-5.0); BILIRUBIN,TOTAL 0.7 mg/dL (0.2-1); BLOOD UREA NITROGEN 16.4 mg/dL (7-18); CALCIUM 9.5 mg/dL (8.5-10.1); CREATININE 1.1 mg/dL (0.55-1.3); MAGNESIUM 2.5 mg/dL (1.8-2.4); PHOSPHOROUS 4.3 mg/dL (2.5-4.9); POTASSIUM 4.5 mmol/L (3.5-5.1); TOT PROT 7.7 g/dl (6.4-8.2)
[2018-12-30 09:18] LABS: INR 1.02 (0.83-1.09)
[2018-12-30] MEDS: LACTATED RINGERS SOLUTION 1,000 ML IV SCH (11:00)
--- NOTE | 2018-12-30 12:56 | CON.GI ---
Consult Consult Specialty:: Gastroenterology Referred by:: Medicine Reason for Consultation:: Food bolus impaction - History of Present Illness History of Present Illness: 53yo male presents with throat discomfort and foreign body sensation with possible food bolus impaction. Pt reports eating chicken with roti and mangoes yesterday around 530-6pm. He reports painful sensation with food sticking in his throat soon into the meal. He describes possible ingestion of chicken bones and rodolfo seed fragments that was mixed with the food. Tried to drink water however had persisting pain and regurgitation prompting ED evaluation. Continues to report throat discomfort, near level of cricoid cartilage, with pain when attempting to swallow saliva. Talks in full sentences though spitting saliva intermittently. Pt otherwise well, denies prior episodes of dysphagia or food impactions. Denies n/v, chest pain, sob or fever/chills. No prior EGD or colonoscopy. CT neck revealing 1.7 x 1.7 x 0.2cm partially opaque foreign body/object at cervical esophagus at C7 levels, no free air. - History Source History Provided By: Patient Limitations to Obtaining History: No Limitations - Alcohol/Substance Use Hx Alcohol Use: No - Smoking History Smoking history: Never smoked Have you smoked in the past 12 months: No Aproximately how many cigarettes per day: 0 Home Medications - Allergies Allergies/Adverse Reactions: Allergies Allergy/AdvReac Type Severity Reaction Status Date / Time No Known Allergies Allergy Verified 12/29/18 18:15 - Home Medications Home Medications: Ambulatory Orders NK [No Known Home Medication] 12/29/18 Review of Systems - Review of Systems Constitutional: reports: No Symptoms HENT: reports: Difficult Swallowing, Throat Pain Cardiovascular: reports: No Symptoms Respiratory: reports: No Symptoms Gastrointestinal: reports: Dysphagia Physical Exam-GI Vital Signs: Vital Signs Temperature 98 F 12/30/18 10:00 Pulse Rate 80 12/30/18 10:00 Respiratory Rate 20 12/30/18 10:00 Blood Pressure 132/71 12/30/18 10:00 O2 Sat by Pulse Oximetry (%) 100 12/30/18 09:00 Constitutional: Yes: Well Nourished, Calm HENT: Yes: WNL (Spitting saliva intermittently, not drooling) Respiratory: Yes: WNL Gastrointestinal Inspection: Yes: WNL ...Palpate: Yes: Other (Abd soft, nt, nd) Labs: CBC, BMP 12/30/18 06:00 12/30/18 06:45 INR, PTT INR 1.02 (0.83-1.09) 12/30/18 06:45 Imaging - Results Cat Scan: Report Reviewed, Image Reviewed Problem List - Problems (1) Dysphagia Assessment/Plan: 53yo male presents with throat pain and foreign body sensation after eating chicken and mangoes yesterday evening with concern for food bolus impaction, possibly containing bony/sharp fragments s/p CT revealing 1.7 x 1.7 x 0.2cm partially opaque foreign object at the cervical esophagus (C7 level). Pt continues to have throat pain with some difficulty tolerating secretions concerning for persisting impaction. No respiratory distress currently. -Discussed case with ENT attending, Dr. Hogan, based on suspected level (C7) of impaction - no indication or plan for intervention from ENT perspective. -Discussed and reviewed imaging and case in detail with radiologist and anesthesiologist. Considering concern for persisting impaction at level of proximal/cervical esophagus with risk of airway compromise and perforation particularly with suspected bony/sharp fragments, recommend pt be transferred to facility for endoscopic evaluation/intervention with CT surgery availability if needed. -Discussed case with medicine team - plan to expedite transfer to [facility] for further management Pt agreeable with plan. Also spoke with pts by phone, discussed above recommendations, she verbalized understanding and is agreeable. Code(s): R13.10 - DYSPHAGIA, UNSPECIFIED Qualifiers: Dysphagia type: esophageal phase Qualified Code(s): R13.10 - Dysphagia, unspecified
[2018-12-30] MEDS ORDERED: ACETAMINOPHEN 1000 MG/100 ML VIAL (NON FORMULARY) IVPB PRN (13:23)
--- NOTE | 2018-12-30 17:11 | PN ---
Teaching Attending Note Name of Resident: Annemarie Pat ATTENDING PHYSICIAN STATEMENT I saw and evaluated the patient. I reviewed the resident's note and discussed the case with the resident. I agree with the resident's findings and plan as documented. SUBJECTIVE: Mr Worthy complains of severe pain in his throat and inability to swallow his saliva. No sob or n/v. OBJECTIVE: Last Vital Signs Temp Pulse Resp BP Pulse Ox 36.6 C 80 20 132/71 100 12/30/18 10:00 12/30/18 10:00 12/30/18 10:00 12/30/18 10:00 12/30/18 09:00 Gen: mild to moderate discomfort Pulm: ctab w/o w/r/r CV: rrr w/o m/r/g Abd: +bs, s/nt/nd Ext: no c/c/e CBC, BMP 12/30/18 06:00 12/30/18 06:45 ASSESSMENT AND PLAN: -case discussed with GI -level of impaction too high for GI to perform -GI d/w ENT, recommended patient be transferred to tertiary care center for evaluation and treatment -transfer d/w patient and family who agree to transfer -patient has been accepted for transfer and will be transported today Problem List - Problems (1) Food impaction of esophagus Code(s): T18.128A - FOOD IN ESOPHAGUS CAUSING OTHER INJURY, INITIAL ENCOUNTER Qualifiers: Encounter type: initial encounter Qualified Code(s): T18.128A - Food in esophagus causing other injury, initial encounter
[2018-12-30 17:47] VITALS: BP 128/78; PULSE 53; TEMP 97.7
[2018-12-30] MEDS ORDERED: MAG HYDROX/ALH/SMC/DPHA/LIDO 240 ML MOUTHWASH MM ONE (18:49)
--- NOTE | 2018-12-30 20:15 | DS ---
Physical Exam: SUBJECTIVE: Patient seen and examined. No difficulty breathing but pt with pain and unable to swallow his saliva. Has been spitting up. Seen by GI who had spoken with ENT. Foreign body is at C7 level with risk of perforation. Since we have no other support subspecialists, Pt will be better transferred to a tertiary health care center. OBJECTIVE: Vital Signs Period Temp Pulse Resp BP Sys/Moss Pulse Ox Last 24 Hr 97.0 F-98.1 F 53-86 16-20 107-132/65-89 98-100 PHYSICAL EXAM GENERAL: The patient is awake, alert, and fully oriented, able to vocalize but with throat discomfort. HEAD: Normal with no signs of trauma. EYES: PERRL, extraocular movements intact ENT: oropharynx clear without exudates, NECK: Tender to palpation, no erythema, no visible mass LUNGS: Breath sounds equal, clear to auscultation bilaterally, no wheezes, no crackle HEART: Regular rate and rhythm, S1, S2 ABDOMEN: Soft, nontender, nondistended, normoactive bowel sounds EXTREMITIES: 2+ pulses, warm, well-perfused, no edema. NEUROLOGICAL: Cranial nerves II through XII grossly intact. Normal speech, gait not observed. LABS Laboratory Results - last 24 hr 12/30/18 12/30/18 12/30/18 00:55 06:00 06:45 WBC 7.5 RBC 4.84 Hgb 15.3 Hct 45.0 MCV 93.0 MCH 31.6 MCHC 34.0 RDW 14.7 Plt Count 203 MPV 8.9 PT with INR 12.00 INR 1.02 Sodium Potassium Chloride Carbon Dioxide Anion Gap BUN Creatinine Est GFR (CKD-EPI)AfAm Est GFR (CKD-EPI)NonAf Random Glucose Calcium Phosphorus Magnesium Total Bilirubin AST ALT Alkaline Phosphatase Troponin I < 0.02 Total Protein Albumin 12/30/18 06:45 WBC RBC Hgb Hct MCV MCH MCHC RDW Plt Count MPV PT with INR INR Sodium 138 Potassium 4.5 Chloride 103 Carbon Dioxide 27 Anion Gap 7 L BUN 16.4 Creatinine 1.1 Est GFR (CKD-EPI)AfAm 87.74 Est GFR (CKD-EPI)NonAf 75.70 Random Glucose 114 H Calcium 9.5 Phosphorus 4.3 Magnesium 2.5 H Total Bilirubin 0.7 AST 20 ALT 39 Alkaline Phosphatase 51 Troponin I Total Protein 7.7 Albumin 3.9 Ambulatory Orders NK [No Known Home Medication] 12/29/18 CT soft tissue neck w/o 12/29/18: Clinical information: food sensation in throat Multiplanar imaging was performed. Intravenous contrast was not administered. An approximately 1.7 x 1.7 x 0.2 cm partially opaque foreign body is seen within the cervical esophagus at the C7 level (transaxial images 18 - 24). No extraluminal air is seen. There is no discrete fluid collection. The prevertebral retropharyngeal soft tissue planes appear unremarkable in thickness. Several nonspecific mildly prominent bilateral internal jugular chain lymph nodes are seen which may be reactive in nature. Correlate clinically. Several bilateral punctate calcifications are noted within the palatine tonsils consistent with postinflammatory sequela. Two calcified nodules are seen within the partially imaged left pulmonary apex possibly representing granulomas. IMPRESSION: An approximately 1.7 x 1.7 x 0.2 cm partially opaque foreign body is seen within the cervical esophagus at the C7 level. HOSPITAL COURSE: Date of Admission:12/29/18 Date of Discharge: 12/30/18 Pt is a 53M with pmh of sinusitis (treated with saline) who presented with complaint of sticking sensation in throat. At about 5:30pm pt was eating a roti meal of chicken(w/ bones), potatoes, mangoes(w/ chopped pits) when he felt a sudden sharp sticking sensation in his throat which prompted coughing, watery eyes. No nausea, vomiting. Denies LOC. Tried drinking water for relief but still felt sensation. Denies difficulty with speaking. Denies persistent h/o trouble swallowing, no history of anemia. Never had an EGD or colonoscopy. Works in [employer]. CT soft tissue neck showed foreign body at C7 level. Gi was contacted -Advised by Dr David CHASE to give 1mg IV glucagon, will undergo endoscopy tomorrow morning. ER course was notable for: glucagon x2, dexamethasone x1. In the am, pt was seen by Dr Younger who decided pt needed to be transferred to a tertiary center for higher level of care. I spoke with Dr Crawford, who accepted the patient to the medical service. I also spoke with the GI fellow- Dr Espinal and pt was slated for transfer to get EGD within 4 hours of transfer. Minutes to complete discharge: 45 Discharge Summary Reason For Visit: FOREIGN BODY IN ESOPHAGUS Condition: Stable - Instructions Disposition: TRANSFER ACUTE CARE/OTHER HOSP - Home Medications Comprehensive Discharge Medication List: Ambulatory Orders NK [No Known Home Medication] 12/29/18 This patient is new to me today: Yes Date on this admission: 12/30/18 Emergency Visit: Yes ED Registration Date: 12/29/18 Care time: The patient presented to the Emergency Department on the above date and was hospitalized for further evaluation of their emergent condition. Critical Care patient: No - Discharge Referral Referred to [facility] Med [facility] No ATTENDING PHYSICIAN STATEMENT I saw and evaluated the patient. I reviewed the resident's note and discussed the case with the resident. I agree with the resident's findings and plan as documented. SUBJECTIVE: OBJECTIVE: ASSESSMENT AND PLAN:
== END 2018-12-30 18:02 | disposition short-term general hospital (02) | DRG 395 ==
LOC: JER 18:09 → JERBED 22:07 → J8W 12-30 01:45
PROVIDERS: ADMIT Internal Medicine; ATTEND Internal Medicine
DX: T18.128A Food in esophagus causing other injury, initial encounter (principal); X58.XXXA Exposure to other specified factors, initial encounter; Y93.89 Activity, other specified; Y92.038 Other place in apartment as the place of occurrence of the external cause; Y99.8 Other external cause status
CPT/HCPCS: 36415; 70490-TC; 80053; 83735; 84100; 84484; 85027; 85610; 93005; 93010; 99283-25; J0131; J1100

== ENCOUNTER 2021-06-08 11:58 | Emergency (ER) | payer OTHER | END 2021-06-08 12:11 | disposition home or self-care (01) | LOC: JVIRT 11:58 | DX: Z11.52 Encounter for screening for COVID-19 (principal) | CPT/HCPCS: C9803; Q3014-GT; U0003; U0005 ==

== ENCOUNTER 2023-01-16 22:26 | Emergency (ER) | payer OTHER ==
[2023-01-16 22:32] VITALS: BP 114/81; PULSE 93; RESP 16; TEMP 98.7; BMI 20.9
[2023-01-16] MEDS ORDERED: IBUPROFEN 600 MG TABLET (FP) PO ONE ×2 (22:43→22:46)
[2023-01-16] MEDS ORDERED: METHOCARBAMOL 500 MG TABLET PO ONE (22:43)
[2023-01-16] MEDS ORDERED: METHOCARBAMOL 500 MG TABLET ONE (22:47)
== END 2023-01-16 23:14 | disposition home or self-care (01) ==
LOC: JERFT 22:26
DX: M25.512 Pain in left shoulder (principal); X50.0XXA Overexertion from strenuous movement or load, initial encounter; Y93.F2 Activity, caregiving, lifting
CPT/HCPCS: 73030-TC-LT-FY; 99283-25

== ENCOUNTER 2023-04-23 03:20 | Day surgery (SDC) | payer OTHER ==
[2023-04-21 18:05] VITALS: BMI 24.0
[2023-04-23 06:09] VITALS: RESP 20
[2023-04-23] MEDS ORDERED: MIDAZOLAM HCL 2 MG/2 ML SINGLE DOSE VIAL ONE (07:47)
[2023-04-23] MEDS ORDERED: ALBUTEROL SO4 HFA INHALER IH ONE (07:47)
[2023-04-23] MEDS ORDERED: ROPIVACAINE HCL 0.5% 30ML VIAL ONE (07:48)
[2023-04-23] MEDS ORDERED: FENTANYL CITRATE/PF 50 MCG/ML VIAL ONE (08:18)
[2023-04-23] MEDS ORDERED: LIDOCAINE HCL/PF 2% SDV 5ML VIAL ONE (08:18)
[2023-04-23] MEDS ORDERED: ceFAZolin SODIUM 1 GM VIAL IVPB ONE (08:30)
[2023-04-23] MEDS ORDERED: SUCCINYLCHOLINE CHLORIDE 200 MG/10 ML SYRINGE ONE (08:50)
[2023-04-23] MEDS ORDERED: LACTATED RINGERS SOLUTION 1,000 ML IV SCH (10:30)
[2023-04-23 13:16] VITALS: BP 105/65; PULSE 58; TEMP 96.7
== END 2023-04-23 14:36 | disposition home or self-care (01) ==
LOC: JASU-SURG 03:20
PROVIDERS: ATTEND Orthopaedic Surgery
PROC: 0RNK4ZZ Release Left Shoulder Joint, Percutaneous Endoscopic Approach (ICD-10-PCS; principal; 2023-04-23 08:00)
PROC: 0LM24ZZ Reattachment of Left Shoulder Tendon, Percutaneous Endoscopic Approach (ICD-10-PCS; 2023-04-23 08:00)
DX: M75.122 Complete rotator cuff tear or rupture of left shoulder, not specified as traumatic (principal); S43.432A Superior glenoid labrum lesion of left shoulder, initial encounter; X58.XXXA Exposure to other specified factors, initial encounter; Y92.9 Unspecified place or not applicable; Y93.9 Activity, unspecified
CPT/HCPCS: 29826; 29827; C1713; 94760